=== PATIENT | female | born 1970 | race Caucasian/White ===

== ENCOUNTER 2016-06-08 14:15 | Emergency (ER) | payer OTHER ==
[2016-06-08 14:24] VITALS: BP 139/99; PULSE 108; RESP 18; TEMP 98.2; O2SAT 97
--- NOTE | 2016-06-08 14:53 | EDPHY ---
H & P Stated Complaint: hemorrhoid pain x 2 wks - Personal History LMP (Females 10-55): Post Menopausal Current Tetanus Diphtheria and Acellular Pertussis (TDAP): Yes - Medical/Surgical History Hx Asthma: No Hx Chronic Respiratory Disease: No Hx Diabetes: No Hx Cardiac Disease: No Hx Renal Disease: No Hx Cirrhosis: No Hx Alcoholism: No Hx HIV/AIDS: No Hx Splenectomy or Spleen Trauma: No Other PMH: kidney stones. hemorrhoids - Social History Smoking Status: Never smoked Time Seen by Provider: 06/08/16 14:44 HPI/ROS: Chief complaint: Hemorrhoids History of present illness: This is a 46-year-old female who presents to the emergency department for evaluation and treatment of hemorrhoids. Patient reports she has had hemorrhoids for the last month. They have significantly worsened over the last 2 weeks. She describes constant itching and pain. She is using Anusol cream and Sitz baths but symptoms persist. She has made an appointment with Gastroenterology for the end of this week but cannot take the discomfort anymore. She is requesting pain medicine. She denies fever, she denies abdominal pain, she denies nausea and vomiting, she denies diarrhea or constipation. 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 Multiple external hemorrhoids are noted. No evidence of thrombosis. (Roberto Cruz) Constitutional: Initial Vital Signs Temperature (C) 36.8 C 06/08/16 14:22 Heart Rate 108 H 06/08/16 14:22 Respiratory Rate 18 06/08/16 14:22 Blood Pressure 139/99 H 06/08/16 14:22 O2 Sat (%) 97 06/08/16 14:22 O2 Delivery Mode Room Air Allergies/Adverse Reactions: No Known Allergies Allergy (Verified 06/08/16 14:21) Home Medications: Medication Instructions Recorded CHOLESTYRAMINE POWDER 03/04/10 Citomel 06/08/16 Hydrocodone/APAP 5/325 [[place] 1 tab PO Q6H #10 tab 06/08/16 5/325 (*)] Medical Decision Making ED Course/Re-evaluation: Patient seen under the supervision of my secondary supervising physician Dr. Shanon Pike. Patient presents to the emergency department for evaluation and treatment of hemorrhoids. She is nontoxic. Afebrile and vital signs are stable. Multiple external hemorrhoids are noted without evidence of thrombosis. She is already on Anusol. She is performing Sitz baths. She is requesting pain medicine. I have discussed that pain medicine can cause constipation which can cause worsening of symptoms, she continues to requested. She is given a short course of pain medicine. She is asked to use stool softeners and suppositories. She is referred to general surgery for continued evaluation and care. Strict return precautions are given. Patient voiced understanding and agreement plan. (Roberto Cruz) Other Provider: The patient wasevaluatedand managed by themtnlevel provider. My co-signature indicates that Ihave reviewed this chart and I agree with the findings and plan of care asdocumented. I am the secondary supervisingphysician. (Shanon Pike) - Data Points Medications Given: Discontinued Medications Acetaminophen/Hydrocodone Bitart ([place] 5/325) 1 tab PO EDNOW ONE Stop: 06/08/16 15:00 Last Admin: 06/08/16 15:01 Dose: 1 tab Departure - Departure Disposition: Home, Routine, Self-Care Clinical Impression: Hemorrhoids Condition: Good Instructions: Hemorrhoids (ED) Additional Instructions: Follow-up with General surgery for further evaluation and care Continue to use Anusol HC and Sitz baths I also recommend he use a stool softener such as Colace, Metamucil or Citrucel You can use glycerin suppositories as well If symptoms worsen or new symptoms develop return to the emergency department for recheck Referrals: Kamryn Herrera MD [Primary Care Provider] - As per Instructions Ramiro Carmichael MD [Medical Doctor] - As per Instructions Prescriptions: Hydrocodone/APAP 5/325 [[place] 5/325 (*)] 1 tab PO Q6H #10 tab
[2016-06-08] MEDS ORDERED: HYDROCODONE/APAP 5/325 TAB PO ONE (14:59)
[2016-06-08] MEDS ORDERED: HYDROCODONE/APAP 5/325 TAB ONE (14:59)
== END 2016-06-08 15:02 | disposition home or self-care (01) ==
DX: K64.4 Residual hemorrhoidal skin tags (principal)

== ENCOUNTER 2016-06-13 20:31 | Emergency (ER) | payer OTHER ==
--- NOTE | 2016-06-13 21:02 | EDPHY ---
H & P Stated Complaint: Suprapubic pain, hemorrhoid surg today Time Seen by Provider: 06/13/16 21:02 - Personal History LMP (Females 10-55): Pre Menstrual Current Tetanus/Diphtheria Vaccine: Yes Current Tetanus Diphtheria and Acellular Pertussis (TDAP): Yes - Medical/Surgical History Hx Asthma: No Hx Chronic Respiratory Disease: No Hx Diabetes: No Hx Cardiac Disease: No Hx Renal Disease: No Hx Cirrhosis: No Hx Alcoholism: No Hx HIV/AIDS: No Hx Splenectomy or Spleen Trauma: No Other PMH: kidney stones. hemorrhoids - Social History Smoking Status: Never smoked Constitutional: Initial Vital Signs Temperature (C) 36.4 C 06/13/16 20:37 Heart Rate 127 H 06/13/16 20:37 Respiratory Rate 24 H 06/13/16 20:37 Blood Pressure 133/102 H 06/13/16 20:37 O2 Sat (%) 93 06/13/16 20:37 O2 Delivery Mode Nasal Cannula O2 (L/minute) 2 Allergies/Adverse Reactions: No Known Allergies Allergy (Verified 06/08/16 14:21) Home Medications: Medication Instructions Recorded CHOLESTYRAMINE POWDER 03/04/10 Citomel 06/08/16 Hydrocodone/APAP 5/325 [[place] 1 tab PO Q6H #10 tab 06/08/16 5/325 (*)] OXYBUTYNIN CHLORIDE ER 06/13/16 Medical Decision Making ED Course/Re-evaluation: CHIEF COMPLAINT: Suprapubic abdominal pain HISTORY OF PRESENT ILLNESS: This patient is a 46 year old female status post- surgical hemorrhoidectomy today who presents to the Emergency Department complaining of acute abdominal pain beginning after she returned home from the hospital. She describes her pain as sever and localized to the suprapubic region of her abdomen with no identified exacerbated or alleviating factors. She had a catheter placed following the procedure and has had appropriate output since then. She denies nausea or vomiting or bladder pressure. No additional pertinent medical history. REVIEW OF SYSTEMS: A 10 point review of systems was performed and is negative with the exception of the elements mentioned in the history of present illness. PHYSICAL EXAM: HR 127, BP 133/102, O2 Sat 93%, RR 24. Temp noted General Appearance: Alert, well hydrated, appropriate, and non-toxic appearing. Head: Atraumatic without scalp tenderness or obvious injury Eyes: Pupils equal, round, reactive to light and accommodation, EOMI, no trauma , no injection. Ears: Clear bilaterally, no perforation, normal landmarks Nose: Atraumatic, no rhinorrhea, clear. Throat: There is no erythema or exudates, no lesions, normal tonsils, mucus membranes moist. Neck: Supple, 2+ carotid upstroke, nontender, no lymphadenopathy. Respiratory: No retractions, no distress, no wheezes, and no accessory muscle use. Lungs are clear to auscultation bilaterally. Cardiovascular: Regular rate and rhythm, no murmurs, rubs, or gallops. Bilateral carotid, radial, dorsalis pedis, and posterior tibial pulses intact. Good capillary refill all extremities. Gastrointestinal: Abdomen is soft, moderate to severe suprapubic tenderness with guarding, non-distended, no masses, no rebound. Musculoskeletal: Normal active ROM of all extremities, atraumatic. Neurological: Alert, appropriate, and interactive. The patient has normal DTRs and non-focal cranial nerves, motor, sensory, and cerebellar exam. Skin: No rashes, good turgor, no nodules on palpation. Past medical history: Hemorrhoids Past surgical history: Hemorrhoid surgery today 06/13/2016 Family history: Non-contributory Social history: at bedside. DIAGNOSTICS/PROCEDURES/CRITICAL CARE TIME: Study: CT of the abdomen Indication: Pain, hemorrhoidectomy today Results: CT scan of the abdomen was obtained. The results of the study are: no acute findings. The study was read by the radiologist, Dr. Leonard. I viewed the images myself on the PACS system. DIFFERENTIAL DIAGNOSIS: MEDICAL DECISION MAKING: This 46 y/o female presents following a surgical hemorrhoidectomy performed at a clinic in [place] today with a Stout catheter in place complaining of severe suprapubic tenderness beginning acutely this evening. On exam, she has involuntary guarding and moderate to severe tenderness to palpation. I am suspicious of possible bowel perforation and will proceed with CT of the abdomen. IV established. 1L IV NS, 1mg IV Dilaudid, 4mg IV Zofran, and 30mg Toradol administered. Labs reviewed: WBC elevated at 14.24. 221: Imaging results reported to me by Dr. Leonard. 2221: Consultation with Dr. Jaron Toro, general surgery, who will visit the patient in the ED. 2239: Dr. Toro visited the patient in the ED. She now reports that her pain has entirely resolved. We will proceed with a PO challenge and discharge home. - Data Points Laboratory Results: Laboratory Results 06/13/16 21:24 06/13/16 21:24 06/13/16 21:24 WBC 14.24 H 10^3/uL (3.80-9.50) RBC 4.37 10^6/uL (4.18-5.33) Hgb 13.8 g/dL (12.6-16.3) Hct 39.7 % (38.0-47.0) MCV 90.8 fL (81.5-99.8) MCH 31.6 pg (27.9-34.1) MCHC 34.8 g/dL (32.4-36.7) RDW 12.9 % (11.5-15.2) Plt Count 262 10^3/uL (150-400) MPV 9.8 fL (8.7-11.7) Neut % (Auto) 82.5 H % (39.3-74.2) Lymph % (Auto) 10.5 L % (15.0-45.0) [place] % (Auto) 5.7 % (4.5-13.0) Eos % (Auto) 0.4 L % (0.6-7.6) Baso % (Auto) 0.3 % (0.3-1.7) Nucleat RBC Rel Count 0.0 % (0.0-0.2) Absolute Neuts (auto) 11.77 H 10^3/uL (1.70-6.50) Absolute Lymphs (auto) 1.49 10^3/uL (1.00-3.00) Absolute Monos (auto) 0.81 H 10^3/uL (0.30-0.80) Absolute Eos (auto) 0.05 10^3/uL (0.03-0.40) Absolute Basos (auto) 0.04 10^3/uL (0.02-0.10) Absolute Nucleated RBC 0.00 10^3/uL (0-0.01) Immature Gran % 0.6 % (0.0-1.1) Immature Gran # 0.08 10^3/uL (0.00-0.10) PT 13.7 SEC (12.0-15.0) INR 1.06 (0.83-1.16) APTT 25.3 SEC (23.0-38.0) Sodium 136 mEq/L (134-144) Potassium 4.7 mEq/L (3.5-5.2) Chloride 106 mEq/L (97-110) Carbon Dioxide 21 L mEq/l (22-31) Anion Gap 9 mEq/L (8-16) BUN 12 mg/dL (7-23) Creatinine 0.7 mg/dL (0.6-1.0) Estimated GFR > 60 Glucose 105 H mg/dL (70-100) Calcium 9.5 mg/dL (8.5-10.4) Beta HCG, Qual NEGATIVE Medications Given: Discontinued Medications Hydromorphone HCl (Dilaudid) 1 mg IVP EDNOW ONE Stop: 06/13/16 21:38 Last Admin: 06/13/16 21:50 Dose: 1 mg Sodium Chloride (Ns) 1,000 mls @ 0 mls/hr IV ONCE ONE PRN Reason: Wide Open Stop: 06/13/16 21:58 Last Admin: 06/13/16 22:00 Dose: 1,000 mls Ketorolac Tromethamine (Toradol) 30 mg IVP EDNOW ONE Stop: 06/13/16 21:38 Last Admin: 06/13/16 21:49 Dose: 30 mg Ondansetron HCl (Zofran) 4 mg IVP EDNOW ONE Stop: 06/13/16 21:38 Last Admin: 06/13/16 21:48 Dose: 4 mg Phenazopyridine HCl (Pyridium) 200 mg PO EDNOW ONE Stop: 06/13/16 21:13 Last Admin: 06/13/16 21:19 Dose: 200 mg Departure - Departure Disposition: Home, Routine, Self-Care Clinical Impression: Abdominal pain Qualifiers: Abdominal location: lower abdomen, unspecified Qualifier Code: (R10.30) Lower abdominal pain, unspecified Condition: Good Instructions: Abdominal Pain (ED) Additional Instructions: 1. Continue your post-surgery instructions as provided by your surgeon. 2. Follow-up for further evaluation with your primary care provider in 2-3 days. 3. Return to the Emergency Department with repeat severe abdominal pain, blood in vomit or stool, uncontrollable vomiting, fever, rectal bleeding, or other serious concerns. Referrals: Kamryn Herrera MD [Primary Care Provider] - As per Instructions Report Scribed for: Mars Pimentel Report Scribed by: Meghna Edward Date of Report: 06/13/16 Time of Report: 21:03
[2016-06-13] MEDS ORDERED: PHENAZOPYRIDINE HCL 200 MG TAB ONE (21:12)
[2016-06-13] MEDS ORDERED: PHENAZOPYRIDINE HCL 200 MG TAB PO ONE (21:12)
[2016-06-13] MEDS ORDERED: HYDROmorphONE/DILAUDID 1 MG/ML SYR IVP ONE (21:37)
[2016-06-13] MEDS ORDERED: KETOROLAC 30 MG/1 ML SDV IVP ONE (21:37)
[2016-06-13] MEDS ORDERED: ONDANSETRON 4 MG/2 ML VIAL IVP ONE (21:37)
[2016-06-13 21:44] LABS: % IMMATURE GRANULYOCYTES 0.6 % (0.0-1.1); ABSOLUTE IMMATURE GRANULOCYTES 0.08 10^3/uL (0.00-0.10); ADD DIFF? NO; ADD MORPH? NO; ADD SCAN? NO; ATYPICAL LYMPHOCYTE FLAG 0 (0-99); FRAGMENT RBC FLAG 0 (0-99); HEMATOCRIT 39.7 % (38.0-47.0); HEMOGLOBIN 13.8 g/dL (12.6-16.3); LEFT SHIFT FLG 0 (0-99); LIPEMIA HEMOLYSIS FLAG 90 (0-99); MEAN CELL HEMOGLOBIN 31.6 pg (27.9-34.1); MEAN CELL HEMOGLOBIN CONCENTR. 34.8 g/dL (32.4-36.7); MEAN CELL VOLUME 90.8 fL (81.5-99.8); MEAN PLATELET VOLUME 9.8 fL (8.7-11.7); PLATELET CLUMPS FLAG 0 (0-99); PLATELET COUNT 262 10^3/uL (150-400); RED BLOOD CELL COUNT 4.37 10^6/uL (4.18-5.33); RED CELL DISTRIBUTION WIDTH 12.9 % (11.5-15.2)
[2016-06-13 21:48] LABS: ANION GAP 9 mEq/L (8-16); CALCIUM 9.5 mg/dL (8.5-10.4); CARBON DIOXIDE 21 mEq/l (22-31); CHLORIDE 106 mEq/L (97-110); CREATININE 0.7 mg/dL (0.6-1.0); GLOMERULAR FILTRATION RATE > 60; GLUCOSE 105 mg/dL (70-100); POTASSIUM 4.7 mEq/L (3.5-5.2); SODIUM 136 mEq/L (134-144)
[2016-06-13] MEDS ORDERED: IOPAMIDOL (ISOVUE-300) 100 ML BTL IV ONE (21:52)
[2016-06-13] MEDS ORDERED: NS 1,000 ML IV ONE (21:57)
[2016-06-13 21:58] LABS: INR 1.06 (0.83-1.16); PROTIME(PATIENT) 13.7 SEC (12.0-15.0)
[2016-06-13 21:59] LABS: APTT 25.3 SEC (23.0-38.0)
--- NOTE | 2016-06-13 22:37 | CT ---
CT Scan of the Abdomen and Pelvis (With Contrast) Clinical Indications: Had hemorrhoid surgery in [place] today. Now with abdominal pain. Mildly elev ated white blood count of 14,000. Technique: Dilute contrast was given orally prior to the scan. During the machine power injection o f 99 mL Isovue-300 intravenously, multidetector helical CT imaging was performed from the diaphragm t o the pubic symphysis. Coronal and parasagittal reformatted images are reviewed on the workstation. Dose reduction techniques were utilized. Comparison: March 08, 2016. Findings: Diffuse descending colonic and sigmoid colonic diverticulosis is unchanged. No associated inflammation. The appendix is normal. Small bowel loops are normal. A single focus of calcificati on in the right lower quadrant in the mesentery is nonspecific, probably representing a phlebolith. The patient is post cholecystectomy. The lung bases are clear. The liver, spleen, pancreas, adrenal glands, and kidneys enhance normally. No free air. No abscess or free fluid. The small bowel loop s are normal. No adenopathy or mass. The pelvic structures are otherwise within normal limits for the patient's age. The Stout catheter i s poking at the left superior end of the bladder with the balloon. There are small specks of air in the abdoulaye-inguinal region that would be consistent with today's hemorrhoid surgery. The soft tissues and the bones are otherwise normal for the patient's age. Impressions 1. Small specks of air that is limited to the perianal area consistent with today's hemorrhoid surge ry. 2. No acute process identified in the abdomen and pelvis. 3. Significant diverticulosis, unchanged from prior scan. Findings were discussed with Dr. Mars Pimentel. E:tim
[2016-06-13 23:17] VITALS: BP 124/86; PULSE 100; RESP 15; TEMP 98.1; O2SAT 93
--- NOTE | 2016-06-14 01:57 | GCON ---
[f rep st] CONSULTATION DATE OF CONSULTATION: 06/13/2016 CHIEF COMPLAINT: Abdominal pain. HISTORY OF PRESENT ILLNESS: This otherwise healthy female underwent uneventful open hemorrhoidectomy earlier today in [place]. She did have a bit of a austyn post operative course that required Stout ca theterization and an extended postoperative stay, but was subsequently discharged home. On her way h ome, began to have excruciating left-sided abdominal pain, which was new. This was not associated wi th any other symptoms including nausea, vomiting, fevers, or chills. Because of the severity of the pain, the patient presented here. Here in the emergency department, she received some IV fluids and IV narcotics. On my exam, she states that the pain is essentially resolved. It is still there somew hat. She does feel somewhat tired, but, more than likely, that is attributed to her entire day and p ostoperative course, she states. At this point in time, she states that the pain has resolved. She denies having nausea, vomiting, fevers, chills and otherwise feels well. PAST MEDICAL HISTORY: Hemorrhoids. PAST SURGICAL HISTORY: Open hemorrhoidectomy performed earlier today. PHYSICAL EXAM: VITAL SIGNS: She is afebrile. LUNGS: Clear. HEART: Has a regular rhythm. ABDOME N: Obese. It is soft. I appreciate no masses. She is nontender to both soft and deep palpation. She has some well-healed previous surgical scars. EXTREMITIES: Warm. RECTAL: She has some bruisin g on the left lateral position. I do not see any stigmata of infection or anything else that is conc erning at this point in time. The area is pretty exquisitely tender, consistent with her postoperati ve course. LABORATORY: Leukocytosis to 14,000. IMAGING: CT scan of the abdomen and pelvis was performed which shows some stranding in the area of s urgery. No acute process identified within the abdomen. Diverticulosis unchanged from previous. ASSESSMENT/PLAN: 46-year-old female with acute onset abdominal pain, status post open hemorrhoidecto my earlier today. It appears, at this point in time, the patient's pain has completely resolved. Natacha johnson is hemodynamically stable and afebrile. She wants to go home. I have asked her to complete a p.o. trial here in the emergency department to ensure that she feels well prior to going. If that is wel l-tolerated and she continues to be pain free appropriately, I have said that it is okay for her to g o home, and to follow up with her colorectal surgeon within the next 24 hours. /[id number]/MODL
== END 2016-06-13 23:16 | disposition home or self-care (01) ==
DX: R10.30 Lower abdominal pain, unspecified (principal); Z98.890 Other specified postprocedural states
CPT/HCPCS: 96374; J1170; J1885; J2405; Q9967

== ENCOUNTER 2016-06-19 18:34 | Emergency (ER) | payer OTHER ==
[2016-06-19 18:42] VITALS: TEMP 98.4
--- NOTE | 2016-06-19 18:56 | EDPHY ---
H & P Stated Complaint: Unable to Urinate since thursday HPI/ROS: CHIEF COMPLAINT: Urinary difficulty. HISTORY OF PRESENT ILLNESS: The patient is a 46-year-old female status post hemorrhoidectomy 6 days ago. She had urinary retention requiring a Stout catheter placement after the surgery. The catheter removed 2 days ago. She has been unable to urinate much since then. This has been causing her lower abdominal pain. She denies other complaints at this time. No fever. REVIEW OF SYSTEMS: A ten point review of systems was performed and is negative with the exception of the items mentioned in the HPI. Source: Patient Exam Limitations: No limitations - Personal History Current Tetanus/Diphtheria Vaccine: Yes Current Tetanus Diphtheria and Acellular Pertussis (TDAP): Yes - Medical/Surgical History Hx Asthma: No Hx Chronic Respiratory Disease: No Hx Diabetes: No Hx Cardiac Disease: No Hx Renal Disease: No Hx Cirrhosis: No Hx Alcoholism: No Hx HIV/AIDS: No Hx Splenectomy or Spleen Trauma: No Other PMH: kidney stones. hemorrhoids - Social History Smoking Status: Never smoked Additional Social History: She lives with her . No tobacco use. - Physical Exam Exam: General Appearance: Alert. She appears uncomfortable. Vital signs reviewed. Blood pressure 153/104. Eyes: Pupils equal and round, no conjunctival injection, no discharge. Anicteric. ENT, Mouth: Mucous membranes are moist, no oropharyngeal erythema or edema. Neck: No lymphadenopathy, supple. Respiratory: Lungs are clear to auscultation; no wheezes, rales, or rhonchi. Cardiovascular: Tachycardic. Gastrointestinal: Abdomen is soft and tender in both lower quadrants, no masses or organomegaly, bowel sounds normal. Skin: Warm and dry, no rashes on exposed skin, normal color. Back: No CVAT. Extremities: No lower extremity edema, no calf tenderness or swelling. Neurological: Alert and oriented. Moving all four extremities easily and equally. Psychiatric: Normal affect. Constitutional: Initial Vital Signs Temperature (C) 36.9 C 06/19/16 18:40 Heart Rate 118 H 06/19/16 18:40 Respiratory Rate 18 06/19/16 18:40 Blood Pressure 153/104 H 06/19/16 18:40 O2 Delivery Mode Room Air Allergies/Adverse Reactions: No Known Allergies Allergy (Verified 06/08/16 14:21) Home Medications: Medication Instructions Recorded CHOLESTYRAMINE POWDER 03/04/10 Citomel 06/08/16 Hydrocodone/APAP 5/325 [[place] 1 tab PO Q6H #10 tab 06/08/16 5/325 (*)] OXYBUTYNIN CHLORIDE ER 06/13/16 Diazepam [Valium 5 MG (*)] 5 mg PO TID PRN #15 tab 06/19/16 Medical Decision Making ED Course/Re-evaluation: Stout catheter placed after bladder scan showed almost 800 mL of urine in the bladder.. At 7:15 p.m. the patient is writhing in pain secondary to bladder spasm. She is given Valium IV for muscle relaxation. 2000: Reassessed patient. She is feeling better and her bladder appears to have fully drained. No evidence of urinary tract infection on UA. She is given instructions on Stout catheter care. She will follow up with her surgeon and with Urology if needed. Differential Diagnosis: I considered a differential diagnosis of postoperative urinary retention, bladder outlet obstruction, neurogenic bladder, pyelonephritis, and urinary tract infection. - Data Points Medications Given: Discontinued Medications Diazepam (Valium Injection) 2.5 mg IVP EDNOW ONE Stop: 06/19/16 19:14 Last Admin: 06/19/16 19:26 Dose: 2.5 mg Diazepam (Valium Injection) 2.5 mg IVP EDNOW ONE Stop: 06/19/16 19:46 Last Admin: 06/19/16 19:45 Dose: 2.5 mg Departure - Departure Disposition: Home, Routine, Self-Care Clinical Impression: Urinary retention Condition: Good Instructions: Stout Catheter Placement and Care (ED), [facility] Patient Education, Infection Prevention Additional Instructions: Call Dr. Bermudez, urology, and your surgeon tomorrow to set up follow up appointments. Drink plenty of fluids and increase activity level as tolerable. Continue stool softeners. Return to the emergency department if you experience any serious worsening of condition. Referrals: Joey Bermudez MD [Medical Doctor] - As per Instructions Prescriptions: Diazepam [Valium 5 MG (*)] 5 mg PO TID PRN #15 tab PRN Reason: Spasms Report Scribed for: María Sommers Report Scribed by: Melquiades Prieto Date of Report: 06/19/16 Time of Report: 19:11 Physician Review and Approval Statement: 06/19/16 18:55 Portions of this note were transcribed by the rn medical surgical. I, Dr. María Sommers, personally performed the history, physical exam, and medical decision- making; and confirmed the accuracy of the information in the transcribed note.
[2016-06-19] MEDS ORDERED: DIAZEPAM 10 MG/2 ML SYR IVP ONE ×2 (19:13→19:45)
[2016-06-19 20:20] LABS: COLOR YELLOW; LEUKOCYTE ESTERASE,URINE NEGATIVE (NEGATIVE); NITRITE,URINE NEGATIVE (NEGATIVE)
[2016-06-19 20:22] LABS: MUCUS TRACE /lpf (NONE-1+)
[2016-06-19 20:59] VITALS: BP 134/89; PULSE 88; RESP 16; O2SAT 95
== END 2016-06-19 20:58 | disposition home or self-care (01) ==
PROC: 0T9B70Z Drainage of Bladder with Drainage Device, Via Natural or Artificial Opening (ICD-10-PCS; principal; 2016-06-19)
DX: R33.9 Retention of urine, unspecified (principal)
CPT/HCPCS: 96374